=== PATIENT | male | born 1985 | race Caucasian/White ===

== ENCOUNTER 2018-11-15 19:04 | Emergency (ER) | payer OTHER ==
[~2018-11-15] VITALS: Ht 172.7 cm; Wt 72.6 kg
[2018-11-15] MEDS ORDERED: TRIA15CR3 TOP (20:27)
== END 2018-11-15 21:11 | disposition home or self-care (01) ==
LOC: ER 19:04
DX: L23.7 Allergic contact dermatitis due to plants, except food (principal); F17.290 Nicotine dependence, other tobacco product, uncomplicated
CPT/HCPCS: 96372; 99282-25; J3301